=== PATIENT | female | born 1970 | race African-American/Black ===

== ENCOUNTER 2016-10-01 09:11 | Emergency (ER) | payer OTHER ==
[~2016-10-01] VITALS: Ht 165.1 cm; Wt 72.7 kg
[2016-10-01] MEDS ORDERED: TRAZ-144 PO (09:19)
[2016-10-01] MEDS ORDERED: MONT10TA21 PO (09:19)
[2016-10-01] MEDS ORDERED: AMLO-511 PO (09:20)
[2016-10-01] MEDS ORDERED: LISI-662 PO (09:20)
[2016-10-01] MEDS ORDERED: DiphenhydrAMINE HCL 50 MG CAPSULE PO ONE (10:00)
[2016-10-01] MEDS ORDERED: PredniSONE 20 MG TABLET PO ONE (10:00)
[2016-10-01 12:09] VITALS: BP 120/76
== END 2016-10-01 12:13 | disposition home or self-care (01) ==
LOC: EMS 09:13
DX: T78.3XXA Angioneurotic edema, initial encounter (principal); I10 Essential (primary) hypertension
CPT/HCPCS: 99283; J7512

== ENCOUNTER 2018-07-28 14:55 | Emergency (ER) | payer OTHER ==
[~2018-07-28 14:55] MED LIST: AMLO-511 PO; LISI-662 PO; MONT10TA21 PO; TRAZ-252 PO
[2018-07-28] MEDS ORDERED: HYDR25TA PO (15:05)
[2018-07-28 17:50] LABS: BASOPHILS % (AUTO) 0.5 % (0.0-2.0); HEMOGLOBIN 13.4 g/dL (12.0-16.0); LYMPHOCYTES # (AUTO) 1.8 K/uL (1.0-4.8); LYMPHOCYTES % (AUTO) 21.1 % (22.0-44.0); MEAN CORPUSCULAR HEMOGLOBIN 30.4 pg (26.0-34.0); MEAN CORPUSCULAR HGB CONC 33.6 G/dL (31.0-37.0); MEAN CORPUSCULAR VOLUME 91 fL (80-100); MONOCYTES # (AUTO) 0.7 K/uL (0.1-1.0); MONOCYTES % (AUTO) 8.2 % (2.0-9.0); NEUTROPHILS # (AUTO) 5.9 K/uL (1.8-7.7); NEUTROPHILS % (AUTO) 69.2 % (40.0-70.0); PLATELET COUNT (AUTO) 372 K/uL (150-450); RED BLOOD CELL COUNT(AUTO) 4.42 MIL/uL (4.00-5.20); RED CELL DISTRIBUTION WIDTH 14.4 % (11.5-14.5)
[2018-07-28 18:01] LABS: ANION GAP 8 mmol/L (8-16); CALCIUM, TOTAL 9.5 mg/dL (8.8-10.5); CARBON DIOXIDE 28 mmol/L (22-29); CHLORIDE 104 mmol/L (98-107); CREATININE 1.03 mg/dL (0.60-1.30); GLOMERULAR FILTR. RATE CALC > 60 mL/min (>60); GLUCOSE,RANDOM 84 mg/dL (70-110); POTASSIUM 3.7 mmol/L (3.5-5.1); SODIUM SERUM 140 mmol/L (136-145); UREA NITROGEN, BLOOD 18 mg/dL (7-18)
[2018-07-28 18:06] LABS: ALANINE AMINOTRANSFERASE 22 U/L (12-78); ALBUMIN 3.7 g/dL (3.4-5.0); ALKALINE PHOSPHATASE 75 U/L (46-116); ASPARTATE AMINOTRANSFERASE 13 U/L (15-37); BILIRUBIN,TOTAL 0.2 mg/dL (0.1-1.0); TOTAL PROTEIN, SERUM 8.1 g/dL (6.4-8.2)
[2018-07-28 19:00] VITALS: BP 121/79
== END 2018-07-28 19:01 | disposition home or self-care (01) ==
LOC: EMS 14:57
DX: F41.9 Anxiety disorder, unspecified (principal); F32.9 Major depressive disorder, single episode, unspecified; I10 Essential (primary) hypertension; Z88.8 Allergy status to other drugs, medicaments and biological substances
CPT/HCPCS: 93005